=== PATIENT | female | born 1960 | race Caucasian/White ===

== ENCOUNTER 2021-06-02 15:18 | Inpatient (IN) | payer OTHER ==
--- OUTSIDE RECORDS SUMMARY | 2021-06-02 15:20 | XMS REPORT | Continuity of Care Document ---
:1960 Author Organization [facility] t Address [address] [place] [address] Dr. Rasheed [address] [place] [id number] Care Team Providers Name Role Phone Unavailable Unavailable Unavailable Problems This patient has no known problems. Allergies, Adverse Reactions, Alerts This patient has no known allergies or adverse reactions. Medications This patient has no known medications. Procedures This patient has no known procedures. Results This patient has no known results.
[2021-06-02] MEDS ORDERED: ACETAMINOPHEN 500 MG TAB ONE (16:28)
--- NOTE | 2021-06-02 20:57 | RAD REPORT ---
EXAM DESCRIPTION: RAD - Chest Single View - 06/02/2021 8:14 pm CLINICAL HISTORY: CONGESTION COMPARISON: No comparisons FINDINGS: Increased prominence of the pulmonary interstitium. There are some ill-defined airspace op acities in lung bases. The heart size is within normal limits.No acute osseous abnormality. No signif icant pleural effusions or pneumothorax. IMPRESSION: Poorly defined airspace disease in the mid lungs and lung bases concerning for multifoca l pneumonia, including Covid-19.
[2021-06-02 21:12] LABS: Absolute Lymphocytes (CBC) 2.4 K/uL (0.7-4.9); Basophils % 0.2 % (0-1.3); Hematocrit 41.3 % (36.0-45.0); Lymphocytes % 25.3 % (15.3-44.8); MPV 9.9 fL (7.6-11.3); RBC Red Blood Cell Count 4.41 M/uL (3.86-4.86)
[2021-06-02] MEDS ORDERED: NA CHLORIDE 0.9% 1,000 ML ONE (21:16)
[2021-06-02 21:19] LABS: Protime INR 1.17
[2021-06-02 21:36] LABS: ALT/SGPT 93 U/L (12-78); AST/SGOT 62 U/L (15-37); Albumin 3.2 g/dL (3.4-5.0); Alkaline Phosphatase 91 U/L (45-117); BUN Blood Urea Nitrogen 16 mg/dL (7-18); Bicarbonate 25 mmol/L (21-32); Bilirubin Direct 0.2 mg/dL (0-0.2); Bilirubin Total 0.5 mg/dL (0.2-1.0); Ferritin 862.1 ng/mL (8-388); Glucose Level 113 mg/dL (74-106); Lipase 204 U/L (73-393); Potassium 3.4 mmol/L (3.5-5.1); Protein, Total 7.6 g/dL (6.4-8.2); Sodium Level 136 mmol/L (136-145); Troponin (Emerg Dept Use Only) < 0.02 ng/mL (0.0-0.045)
[2021-06-02] MEDS ORDERED: CEFTRIAXONE 1000 MG/VIAL ONE (21:43)
[2021-06-02] MEDS ORDERED: METHYLPREDNISOLONE 125 MG INJ ONE (21:43)
[2021-06-02] MEDS ORDERED: ENOXAPARIN 80 MG/0.8 ML SQ ONE (21:44)
--- NOTE | 2021-06-02 22:24 | ER ---
Nurse's Notes [facility] Name: Cyn Pruett Age: 60 yrs Sex: Female : 1960 Arrival Date: 06/02/2021 Time: 15:23 Bed 17 Private MD: Diagnosis: Hypoxemia;Other viral pneumonia-covid - 19;Tachycardia, unspecified Presentation: 06/02 15:48 Chief complaint: Patient states: COVID + on 05/24/21 at [place], was going to get the jl7 Regeneron but Dr. Phillip said no because our oxygen was too low at 89% and he said to come to the ER to get admitted. Radha the nurse at [facility] spoke with Dr. Guzman and he wanted to send us home but they sent us here because we're dehydrated and our sats were low. Coronavirus screen: Vaccine status: Patient reports being unvaccinated. shortness of breath, Client reports previous positive COVID test result. Date of collection: May 24, 2021. Ebola Screen: No symptoms or risks identified at this time. Initial Sepsis Screen: Does the patient meet any 2 criteria? No. Patient's initial sepsis screen is negative. Does the patient have a suspected source of infection? No. Patient's initial sepsis screen is negative. Risk Assessment: Do you want to hurt yourself or someone else? Patient reports no desire to harm self or others. Onset of symptoms was May 24, 2021. 15:48 Method Of Arrival: Wheelchair jl7 15:48 Acuity: BONY 3 jl7 Triage Assessment: 15:50 General: Appears in no apparent distress. uncomfortable, Behavior is calm, cooperative, jl7 appropriate for age. Pain: Complains of pain in low back area Pain currently is 3 out of 10 on a pain scale. Pain began years ago. Neuro: Level of Consciousness is awake, alert, obeys commands, Oriented to person, place, time, situation. Respiratory: Airway is patent Respiratory effort is even, unlabored, Respiratory pattern is symmetrical, tachypnea. Derm: Skin is pink, warm \T\ dry. Historical: - Allergies: 15:50 No Known Allergies; jl7 - PMHx: 15:50 Hypertensive disorder; SVT; jl7 - PSHx: 15:50 Ablation; section; Cholecystectomy; jl7 - Immunization history:: Adult Immunizations unknown, Client reports having NOT received the Covid vaccine. - Social history:: Smoking status: Patient denies any tobacco usage or history of. - Family history:: not pertinent. Screenin/01 01:52 Abuse screen: Denies threats or abuse. Nutritional screening: No deficits noted. lh3 Tuberculosis screening: No symptoms or risk factors identified. Fall Risk IV access (20 points). Vital Signs: 06/02 15:48 BP 140 / 82; Pulse 120; Resp 23; Temp 101.2(O); Pulse Ox 90% on R/A; Weight 104.33 kg; jl7 Height 5 ft. 6 in. (167.64 cm); Pain 3/10; 15:48 Body Mass Index 37.12 (104.33 kg, 167.64 cm) jl7 ED Course: 15:23 Patient arrived in ED. ds1 15:50 Triage completed. jl7 15:50 Arm band placed on right wrist. Patient placed in waiting room, Patient notified of 7 wait time. 19:48 Chapincito Nolan MD is Attending Physician. ma2 19:51 Winnie Warren, FENG is Primary Nurse. lh3 20:14 CXR XRAY In Process Unspecified. EDMS 21:13 Basic Metabolic Panel Sent. lh3 21:13 Blood Culture Sent. lh3 21:13 C-Reactive Protein Sent. lh3 21:13 BMP Sent. lh3 21:13 Blood Culture Adult (2) Sent. lh3 21:13 C-Reactive Protein Sent. lh3 22:23 Jeferson Palomo MD is Hospitalizing Provider. ma2 06/03 01:52 Patient has correct armband on for positive identification. Call light in reach. Side lh3 rails up X 1. Side rails up X2. 01:52 No provider procedures requiring assistance completed. Inserted saline lock: 22 gauge lh3 in right hand, using aseptic technique. 01:55 Patient admitted, IV remains in place. 3 08:05 Primary Nurse role handed off by Winnie Warren, FENG 19:31 Mini Burton is Primary Nurse. kc4 19:33 Throat Culture Sent. kc4 Administered Medications: 06/02 21:13 Drug: NS 0.9% 1000 ml Route: IV; Rate: 1 bolus; Site: right hand; lh3 06/03 19:35 Follow up: Response: No adverse reaction; IV Status: Completed infusion [facility] 06/02 22:21 Drug: SOLU-Medrol (methylPrednisoLONE) 125 mg Route: IVP; Site: right hand; [facility] 22:21 Drug: Rocephin (cefTRIAXone) 1 grams Route: IV; Rate: calculated rate; Site: right hand;[facility] 06/03 19:33 Follow up: Response: No adverse reaction 4 19:34 Follow up: IV Status: Completed infusion [facility] 06/02 22:21 Drug: Lovenox (enoxaparin) 80 mg Route: Sub-Q; Site: left lower abdomen; [facility] 06/03 19:34 Follow up: Response: No adverse reaction [facility] Outcome: 06/02 22:24 Decision to Hospitalize by Provider. in2 06/03 01:52 Admitted to ER Hold. [facility]. 3 Condition: stable Discharge instructions given to Instructed on the need for admit, Demonstrated understanding of instructions. 06/04 15:02 Patient left the ED. ch5 Signatures: Dispatcher [employer] EDMS Billie Montague Demi ds1 Isra Hall RN RN jl7 Chapincito Nolan MD MD in2 Winnie Warren RN RN 3 Josh Garcia, FENG RN ch5 Mini Burton kc4 Corrections: (The following items were deleted from the chart) 06/02 15:52 15:48 BP 140 / 82; Pulse 120bpm; Resp 19bpm; Pulse Ox 90% RA; Temp 101.2F Oral; 104.33 jl7 kg; Height 5 ft. 6 in.; BMI: 37.1; Pain 3/10; jl7
--- NOTE | 2021-06-02 22:24 | EDPHYS ---
Physician Documentation [facility] Name: Cyn Pruett Age: 60 yrs Sex: Female : 1960 Arrival Date: 06/02/2021 Time: 15:23 Bed 17 Private MD: ED Physician Chapincito Nolan HPI: 06/02 20:30 This 60 yrs old Female presents to ER via Wheelchair with complaints of ma2 COVID+ Low O2. 20:30 The patient has shortness of breath with light activity. Onset: The symptoms/episode ma2 began/occurred gradually, 10 day(s) ago. Associated signs and symptoms: Pertinent positives: non-productive cough, Pertinent negatives: productive cough, dizziness, hemoptysis, loss of consciousness, nausea, visual changes. Severity of symptoms: At their worst the symptoms were mild in the emergency department the symptoms are unchanged. The patient has not experienced similar symptoms in the past. Historical: - Allergies: 15:50 No Known Allergies; jl7 - PMHx: 15:50 Hypertensive disorder; SVT; jl7 - PSHx: 15:50 Ablation; section; Cholecystectomy; jl7 - Immunization history:: Adult Immunizations unknown, Client reports having NOT received the Covid vaccine. - Social history:: Smoking status: Patient denies any tobacco usage or history of. - Family history:: not pertinent. ROS: 20:30 Constitutional: Negative for fever, chills, and weight loss. ma2 20:30 All other systems are negative. Exam: 20:30 Constitutional: This is a well developed, well nourished patient who is awake, alert, ma2 and in no acute distress. Head/Face: Normocephalic, atraumatic. Eyes: Pupils equal round and reactive to light, extra-ocular motions intact. Lids and lashes normal. Conjunctiva and sclera are non-icteric and not injected. Cornea within normal limits. Periorbital areas with no swelling, redness, or edema. ENT: Nares patent. No nasal discharge, no septal abnormalities noted. Tympanic membranes are normal and external auditory canals are clear. Oropharynx with no redness, swelling, or masses, exudates, or evidence of obstruction, uvula midline. Mucous membranes moist. Neck: Trachea midline, no thyromegaly or masses palpated, and no cervical lymphadenopathy. Supple, full range of motion without nuchal rigidity, or vertebral point tenderness. No Meningismus. Chest/axilla: Normal chest wall appearance and motion. Nontender with no deformity. No lesions are appreciated. Cardiovascular: Regular rate and rhythm with a normal S1 and S2. No gallops, murmurs, or rubs. Normal PMI, no JVD. No pulse deficits. Abdomen/GI: Soft, non-tender, with normal bowel sounds. No distension or tympany. No guarding or rebound. No evidence of tenderness throughout. Back: No spinal tenderness. No costovertebral tenderness. Full range of motion. MS/ Extremity: Pulses equal, no cyanosis. Neurovascular intact. Full, normal range of motion. Neuro: Awake and alert, GCS 15, oriented to person, place, time, and situation. Cranial nerves II-XII grossly intact. Motor strength 5/5 in all extremities. Sensory grossly intact. Cerebellar exam normal. Normal gait. 20:30 Respiratory: mild respiratory distress is noted, Respirations: labored breathing, Breath sounds: rales, bronchial sounds, that are moderate, are scattered, Respiratory rate: 32 spo 2 is 88 on RA and 92 on 3L O2. Vital Signs: 15:48 BP 140 / 82; Pulse 120; Resp 23; Temp 101.2(O); Pulse Ox 90% on R/A; Weight 104.33 kg; jl7 Height 5 ft. 6 in. (167.64 cm); Pain 3/10; 15:48 Body Mass Index 37.12 (104.33 kg, 167.64 cm) jl7 MDM: 19:48 Patient medically screened. ma2 22:22 Differential diagnosis: Bronchitis CHF exacerbation, pneumonia, reactive airway ma2 disease. Data reviewed: vital signs, nurses notes, EMS record. Counseling: I had a detailed discussion with the patient and/or guardian regarding: the historical points, exam findings, and any diagnostic results supporting the discharge/admit diagnosis, the presence of at least one elevated blood pressure reading (>120/80) during this emergency department visit, the need for outpatient follow up. Response to treatment: the patient's symptoms have markedly improved after treatment. 22:24 ED course: patient need to be admitted for covid 19, has hypoxemia and spo2 was 88 on ma2 RA. now spo2 is 93 on O2 3l via NC. 06/02 19:17 Order name: BMP [facility] 06/02 19:17 Order name: Blood Culture Adult (2) [facility] 06/02 19:17 Order name: C-Reactive Protein [facility] 06/02 19:17 Order name: CBC with Diff; Complete Time: 22:21 [facility] 06/02 19:17 Order name: Ferritin; Complete Time: 22:21 [facility] 06/02 19:17 Order name: Flu; Complete Time: 22:21 [facility] 06/02 19:17 Order name: LFT's; Complete Time: 22:21 [facility] 06/02 19:17 Order name: Lactate; Complete Time: 22:21 [facility] 06/02 19:17 Order name: Lipase; Complete Time: 22:21 [facility] 06/02 19:17 Order name: PT-INR; Complete Time: 22:21 [facility] 06/02 19:17 Order name: Procalcitonin; Complete Time: 22:21 [facility] 06/02 19:17 Order name: Ptt, Activated; Complete Time: 22:21 [facility] 06/02 19:17 Order name: Strep; Complete Time: 22:21 [facility] 06/02 19:17 Order name: Troponin (emerg Dept Use Only); Complete Time: 22:21 [facility] 06/02 19:17 Order name: Urine Microscopic Only; Complete Time: 12:44 [facility] 06/02 19:18 Order name: Basic Metabolic Panel; Complete Time: 22:21 [facility] 06/02 19:18 Order name: Blood Culture [facility] 06/02 19:18 Order name: C-Reactive Protein; Complete Time: 22:21 [facility] 06/02 21:42 Order name: Throat Culture [facility] 06/02 23:08 Order name: Urine Dipstick-Ancillary; Complete Time: 12:44 [facility] 06/03 05:47 Order name: D-Dimer; Complete Time: 12:44 [facility] 06/03 05:49 Order name: CBC with Automated Diff; Complete Time: 12:44 [facility] 06/03 06:29 Order name: Comprehensive Metabolic Panel; Complete Time: 12:44 [facility] 06/03 06:29 Order name: Lipid Profile; Complete Time: 12:44 [facility] 06/03 06:29 Order name: C-Reactive Protein; Complete Time: 12:44 [facility] 06/03 06:29 Order name: T4 Free; Complete Time: 12:44 [facility] 06/03 06:29 Order name: Thyroid Stimulating Hormone; Complete Time: 12:44 [facility] 06/03 06:29 Order name: Ferritin; Complete Time: 12:44 [facility] 06/04 03:13 Order name: CBC with Automated Diff [facility] 06/04 03:15 Order name: D-Dimer [facility] 06/02 19:17 Order name: CXR XRAY; Complete Time: 22:21 [facility] 06/02 19:17 Order name: EKG; Complete Time: 19:18 dc2 06/02 19:17 Order name: Cardiac monitoring; Complete Time: 21:13 [facility] 06/02 19:17 Order name: Droplet/Contact Precautions; Complete Time: 21:13 [facility] 06/02 19:17 Order name: EKG - Nurse/Tech; Complete Time: 21:13 [facility] 06/02 19:17 Order name: Ag; Complete Time: 19:32 [facility] 06/02 19:17 Order name: IV Start; Complete Time: 21:14 [facility] 06/02 19:17 Order name: Labs collected and sent; Complete Time: 21:14 [facility] 06/02 19:17 Order name: O2 Per Protocol; Complete Time: 21:14 [facility] 06/02 19:17 Order name: O2 Sat Monitoring; Complete Time: 21:14 [facility] 06/02 19:17 Order name: Urine Dipstick-Ancillary (obtain specimen); Complete Time: 19:32 [facility] 06/04 03:29 Order name: Comprehensive Metabolic Panel [facility] 06/04 03:29 Order name: C-Reactive Protein [facility] 06/04 03:29 Order name: Ferritin [facility] Administered Medications: 21:13 Drug: NS 0.9% 1000 ml Route: IV; Rate: 1 bolus; Site: right hand; 3 06/03 19:35 Follow up: Response: No adverse reaction; IV Status: Completed infusion [facility] 06/02 22:21 Drug: SOLU-Medrol (methylPrednisoLONE) 125 mg Route: IVP; Site: right hand; 3 22:21 Drug: Rocephin (cefTRIAXone) 1 grams Route: IV; Rate: calculated rate; Site: right hand;3 06/03 19:33 Follow up: Response: No adverse reaction 4 19:34 Follow up: IV Status: Completed infusion [facility] 06/02 22:21 Drug: Lovenox (enoxaparin) 80 mg Route: Sub-Q; Site: left lower abdomen; 3 06/03 19:34 Follow up: Response: No adverse reaction kc4 Disposition Summary: 06/02/21 22:24 Hospitalization Ordered Hospitalization Status: Inpatient Admission ma2 Provider: Jeferson Palomo Condition: Stable ma2 Problem: new ma2 Symptoms: are unchanged dc2 Bed/Room Type: Standard [facility] Location: [facility] ER HOLD(06/02/21 22:51) em Room Assignment: ERHOLD-(06/02/21 22:51) em Diagnosis - Hypoxemia ma2 - Other viral pneumonia - covid - 19 ma2 - Tachycardia, unspecified ma2 Forms: - Medication Reconciliation Form ma2 - SBAR form ma2 Signatures: Dispatcher [employer] EDTesfaye Ceron RN RN Dane Palomo MD MD rn Leal, Jahala, RN RN jl7 Chapincito Nolan MD MD [facility] Winnie Warren RN RN 3 Mini Burton kc4 Corrections: (The following items were deleted from the chart) 06/02 22:51 22:24 Telemetry/MedSurg (Inpatient) dc2 em 22:51 22:24 ma2 em
[2021-06-02 23:08] LABS: Urine Blood Negative (Negative); Urine Glucose Negative (Negative); Urine Protein 1+ (Negative)
--- NOTE | 2021-06-03 00:13 | P.HP ---
Certification for Inpatient Patient admitted to: Inpatient With expected LOS: >2 Midnights Patient will require the following post-hospital care: None Practitioner: I am a practitioner with admitting privileges, knowledge of patient current condition, hospital course, and medical plan of care. Services: Services provided to patient in accordance with Admission requirements found in Title 42 Section 412.3 of the Code of Federal Regulations <Nomi Miller - Last Filed: 06/03/21 00:10> Patient History Date of Service: 06/03/21 Reason for admission: COVID-19 pneumonia History of Present Illness: 60-year-old female with history of hypertension, SVT status post ablation presents emerge department for shortness of breath. Patient reports that she tested positive for Covid on 05/24/2021 with progressive shortness of breath since then especially worse over the course of last few days. Patient was evaluated emergency department found to be hypoxic with saturations in the high 80s on room air labs are significant for ferritin 862 C-reactive protein 80.8. Patient currently on nasal cannula at 3 L saturating in the low 90s. ED provider wishes to admit for further evaluation and management. 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 - Family History Family History: Reviewed- Non-Contributory - Social History Smoking Status: Never smoker Alcohol use: No CD- Drugs: No Caffeine use: Yes Place of Residence: Home <Nomi Miller - Last Filed: 06/03/21 00:10> Date of Service: 06/03/21 <Jeferson Palomo - Last Filed: 06/03/21 17:59> Review of Systems 10-point ROS is otherwise unremarkable General: Fever, Chills, Weakness, Malaise Respiratory: Cough, Shortness of Breath, SOB with Excertion <Nomi Miller - Last Filed: 06/03/21 00:10> Physical Examination - Physical Exam General: Alert, In no apparent distress, Oriented x3 HEENT: Atraumatic, PERRLA, Other (Mucous membranes dry) Neck: Supple, 2+ carotid pulse no bruit, No LAD Respiratory: Diminished Cardiovascular: Regular rate/rhythm, Normal S1 S2 Gastrointestinal: Normal bowel sounds, No tenderness Musculoskeletal: No tenderness Integumentary: No rashes Neurological: Normal speech, Normal strength at 5/5 x4 extr, Normal tone, Normal affect - Studies Laboratory Data (last 24 hrs) 06/02/21 20:33: PT 13.5 H, INR 1.17, APTT 27.0 06/02/21 20:33: WBC 9.60, Hgb 13.9, Hct 41.3, Plt Count 206 06/02/21 20:33: Sodium 136, Potassium 3.4 L, BUN 16, Creatinine 0.92, Glucose 113 H, Total Bilirubin 0.5, AST 62 H, ALT 93 H, Alkaline Phosphatase 91, Lipase 204 Microbiology Data (last 24 hrs): 06/02/21 20:45 Throat Group A Streptococcus Rapid Screen - Final 06/02/21 20:45 Nasopharnyx Influenza Type A Antigen Screen - Final 06/02/21 20:45 Nasopharnyx Influenza Type B Antigen Screen - Final <Nomi Miller - Last Filed: 06/03/21 00:10> - Studies Laboratory Data (last 24 hrs) 06/02/21 20:33: PT 13.5 H, INR 1.17, APTT 27.0 06/02/21 20:33: WBC 9.60, Hgb 13.9, Hct 41.3, Plt Count 206 06/02/21 20:33: Sodium 136, Potassium 3.4 L, BUN 16, Creatinine 0.92, Glucose 113 H, Total Bilirubin 0.5, AST 62 H, ALT 93 H, Alkaline Phosphatase 91, Lipase 204 Microbiology Data (last 24 hrs): 06/02/21 20:45 Throat Group A Streptococcus Rapid Screen - Final 06/02/21 20:45 Nasopharnyx Influenza Type A Antigen Screen - Final 06/02/21 20:45 Nasopharnyx Influenza Type B Antigen Screen - Final <Jeferson Palomo - Last Filed: 06/03/21 17:59> Assessment and Plan - Plan Assessment: Acute hypoxic respiratory failure secondary to COVID-19 pneumonia Hypertension Plan: Acute hypoxic respiratory failure secondary to COVID-19 pneumonia: Continue IV steroids, oral supplements. Patient has previously taken ivermectin. Supplemental oxygen as needed, daily right saturations, room air saturations for home O2, social insurance adviser consult in place for home oxygen arrangement. If patient continues to well over the course the next 24 to 48 hours she may be discharged on home oxygen. With worsening patient will likely be here for a prolonged period of time. Pulmonology consulted. Hypertension: Obtain and continue home medications. DVT PPX: Lovenox Code status: Full Discharge Plan: Home Plan to discharge in: 48 Hours - Advance Directives Does patient have a Living Will: No Does patient have a Durable POA for Healthcare: No - Code Status/Comfort Care Code Status Assessed: Yes (Full code) Critical Care: No Time Spent Managing Pts Care (In Minutes): 55 <Nomi Miller - Last Filed: 06/03/21 00:10> - Plan Patient seen and examined on rounds this morning Patient still dyspneic, but tolerating 2 L nasal cannula Generalized weakness, desaturates with movement Anticipate discharge home tomorrow with home O2. <Jeferson Palomo - Last Filed: 06/03/21 17:59>
[2021-06-03 00:25] LABS: Urine Bacteria <20 /HPF (<20)
[2021-06-03 01:41] VITALS: BMI 37.1
[2021-06-03] MEDS ORDERED: BENZONATATE 100 MG CAP PO PRN (01:42)
[2021-06-03] MEDS ORDERED: ONDANSETRON 4 MG/2 ML VIAL IV PRN (01:42)
[2021-06-03] MEDS ORDERED: MELATONIN 5 MG TABLET PO PRN (01:42)
[2021-06-03] MEDS ORDERED: ACETAMINOPHEN 500 MG TAB PO PRN (01:42)
[2021-06-03 05:45] LABS: Basophils % 0.3 % (0-1.3); Lymphocytes % 19.5 % (15.3-44.8); RBC Red Blood Cell Count 4.14 M/uL (3.86-4.86)
[2021-06-03 06:28] LABS: ALT/SGPT 88 U/L (12-78); AST/SGOT 60 U/L (15-37); Albumin 2.9 g/dL (3.4-5.0); Alkaline Phosphatase 84 U/L (45-117); BUN Blood Urea Nitrogen 13 mg/dL (7-18); Bicarbonate 24 mmol/L (21-32); Bilirubin Total 0.3 mg/dL (0.2-1.0); Ferritin 759.5 ng/mL (8-388); Glucose Level 181 mg/dL (74-106); HDL Cholesterol 57 mg/dL (40-60); LDL Cholesterol, Calculated 55 (<130); Potassium 4.1 mmol/L (3.5-5.1); Protein, Total 6.8 g/dL (6.4-8.2); Sodium Level 139 mmol/L (136-145); Thyroid Stimulating Hormone 0.327 uIU/mL (0.360-3.740)
[2021-06-03] MEDS ORDERED: ASCORBIC ACID 500 MG TABLET ONE ×4 (07:49→21:17)
[2021-06-03] MEDS ORDERED: VITAMIN D 1000 UNIT TAB ONE ×2 (07:50→09:37)
[2021-06-03] MEDS ORDERED: ZINC SULFATE 220 MG CAP ONE (07:50)
[2021-06-03] MEDS ORDERED: THIAMINE HCL 100 MG TABLET ONE (07:50)
[2021-06-03] MEDS ORDERED: ASPIRIN EC 81 MG TAB PO ONE (07:50)
[2021-06-03] MEDS ORDERED: METHYLPREDNISOLONE 40 MG INJ ONE (07:51)
[2021-06-03] MEDS ORDERED: ENOXAPARIN 40 MG/0.4 ML SQ ONE (07:51)
[2021-06-03] MEDS: ASCORBIC ACID 500 MG TABLET PO SCH ×4 (09:00→21:00)
[2021-06-03] MEDS: VITAMIN D 1000 UNIT TAB PO SCH (09:00)
[2021-06-03] MEDS: ZINC SULFATE 220 MG CAP PO SCH (09:00)
[2021-06-03] MEDS: ASPIRIN EC 81 MG TAB PO SCH (09:00)
[2021-06-03] MEDS ORDERED: METHYLPREDNISOLONE 40 MG INJ IV SCH (09:00)
[2021-06-03] MEDS: ENOXAPARIN 40 MG/0.4 ML SQ SCH (09:00)
[2021-06-03] MEDS: THIAMINE HCL 100 MG TABLET PO SCH (09:00)
--- NOTE | 2021-06-03 13:26 | P.PN ---
Subjective Date of Service: 06/03/21 Chief Complaint: COVID-19 pneumonia Subjective: Improving (Doing well no complaints) Review of Systems General: Weakness Respiratory: Shortness of Breath Physical Examination - Vital Signs Temperature: 98.6 F Blood Pressure: 127/69 Pulse: 70 Respirations: 16 Pulse Ox (%): 100 - Physical Exam General: Alert, Oriented x3, Cooperative - Studies Laboratory Data (last 24 hrs) 06/02/21 20:33: PT 13.5 H, INR 1.17, APTT 27.0 06/02/21 20:33: WBC 9.60, Hgb 13.9, Hct 41.3, Plt Count 206 06/02/21 20:33: Sodium 136, Potassium 3.4 L, BUN 16, Creatinine 0.92, Glucose 113 H, Total Bilirubin 0.5, AST 62 H, ALT 93 H, Alkaline Phosphatase 91, Lipase 204 Microbiology Data (last 24 hrs): 06/02/21 20:45 Throat Group A Streptococcus Rapid Screen - Final 06/02/21 20:45 Nasopharnyx Influenza Type A Antigen Screen - Final 06/02/21 20:45 Nasopharnyx Influenza Type B Antigen Screen - Final Assessment & Plan - Problems (Diagnosis) (1) COVID-19 Current Visit: Yes Status: Acute Plan: Age 60 AW COVI penumonia/doign well/ on NCO2 Plan to Dc home/ labs and CXRY reviewed/ pt ws prescribed steroids and ivermectin at home
[2021-06-03] MEDS: METHYLPREDNISOLONE 125 MG INJ IV SCH (21:00)
[2021-06-03] MEDS ORDERED: MELATONIN 5 MG TABLET PO ONE (21:17)
[2021-06-03] MEDS ORDERED: METHYLPREDNISOLONE 125 MG INJ ONE (21:17)
[2021-06-04 03:10] LABS: Absolute Lymphocytes (CBC) 1.3 K/uL (0.7-4.9); Basophils % 0.1 % (0-1.3); Hematocrit 37.6 % (36.0-45.0); Lymphocytes % 16.3 % (15.3-44.8); MPV 9.1 fL (7.6-11.3); RBC Red Blood Cell Count 4.01 M/uL (3.86-4.86)
[2021-06-04 03:28] LABS: ALT/SGPT 78 U/L (12-78); AST/SGOT 35 U/L (15-37); Albumin 2.9 g/dL (3.4-5.0); Alkaline Phosphatase 75 U/L (45-117); BUN Blood Urea Nitrogen 12 mg/dL (7-18); Bicarbonate 25 mmol/L (21-32); Bilirubin Total 0.3 mg/dL (0.2-1.0); Ferritin 612.4 ng/mL (8-388); Glucose Level 185 mg/dL (74-106); Protein, Total 6.6 g/dL (6.4-8.2); Sodium Level 140 mmol/L (136-145)
[2021-06-04] MEDS ORDERED: METHYLPREDNISOLONE 125 MG INJ ONE (07:57)
[2021-06-04] MEDS ORDERED: ASPIRIN 81 MG CHEWABLE TABLET ONE (07:57)
[2021-06-04] MEDS ORDERED: ASCORBIC ACID 500 MG TABLET ONE ×2 (07:57→13:12)
[2021-06-04] MEDS ORDERED: THIAMINE HCL 100 MG TABLET ONE (07:57)
[2021-06-04] MEDS ORDERED: ZINC SULFATE 220 MG CAP ONE (07:57)
[2021-06-04] MEDS ORDERED: ENOXAPARIN 40 MG/0.4 ML SQ ONE (07:58)
[2021-06-04] MEDS ORDERED: VITAMIN D 1000 UNIT TAB ONE (07:58)
[2021-06-04] MEDS: VITAMIN D 1000 UNIT TAB PO SCH (08:40)
[2021-06-04] MEDS: ENOXAPARIN 40 MG/0.4 ML SQ SCH (08:40)
[2021-06-04] MEDS: THIAMINE HCL 100 MG TABLET PO SCH (08:40)
[2021-06-04] MEDS: ASCORBIC ACID 500 MG TABLET PO SCH ×2 (08:40→13:00)
[2021-06-04] MEDS: ASPIRIN EC 81 MG TAB PO SCH (08:40)
[2021-06-04] MEDS: ZINC SULFATE 220 MG CAP PO SCH (08:40)
[2021-06-04] MEDS: METHYLPREDNISOLONE 125 MG INJ IV SCH (08:40)
[2021-06-04] MEDS ORDERED: BENZONATATE 100 MG CAP PO ONE (09:43)
[2021-06-04] MEDS ORDERED: ONDANSETRON 4 MG/2 ML VIAL ONE (09:47)
[2021-06-04 11:55] VITALS: O2SAT 92
[2021-06-04 13:17] VITALS: TEMP 98.8
[2021-06-04 14:37] VITALS: BP 118/73
--- NOTE | 2021-06-04 16:05 | P.DS ---
Admission Date: 06/03/21 Discharge Date: 06/04/21 Disposition: ROUTINE DISCHARGE Discharge Condition: GOOD Reason for Admission: COVID-19 pneumonia Consultations: PulmonologyDr. Guzman Procedures: CXR (06/02): FINDINGS: Increased prominence of the pulmonary interstitium. There are some ill-defined airspace opacities in lung bases. The heart size is within normal limits.No acute osseous abnormality. No significant pleural effusions or pneumothorax. IMPRESSION: Poorly defined airspace disease in the mid lungs and lung bases concerning for multifocal pneumonia, including Covid-19. Problem list Acute hypoxic respiratory failure secondary to COVID-19 pneumonia Hypertension Generalized anxiety Brief History of Present Illness: 60-year-old female with history of hypertension, SVT status post ablation presents emerge department for shortness of breath. Patient reports that she tested positive for Covid on 05/24/2021 with progressive shortness of breath since then especially worse over the course of last few days. Patient was evaluated emergency department found to be hypoxic with saturations in the high 80s on room air labs are significant for ferritin 862 C-reactive protein 80.8. Patient currently on nasal cannula at 3 L saturating in the low 90s. ED provider wishes to admit for further evaluation and management. Hospital Course: Patient was treated with steroids, vitamin supplementation, oxygen supplementation. She was breathing much more comfortably with oxygen supplementation, requiring 2-3 L nasal cannula to maintain SPO2 greater than 92%. She had improvement of her symptoms, improvement of her inflammatory markers, was subsequently discharged home with home oxygen. She had just received full prescriptions for vitamin D steroids the day prior to admission. She was instructed to continue those prescriptions. She will follow-up with pulmonology, Dr. Guzman in 1 week. Vital Signs/Physical Exam: Physical exam GEN: Alert, oriented, NAD HEENT: Normal conjunctiva, sclera anicteric CV: Regular rate and rhythm, no edema Pulm: Nonlabored respiration on 3L NC ABD: Soft, nontender, nondistended Integumentary: No rashes Neuro: Normal speech, anxious appearing Temp Pulse Resp BP Pulse Ox 98.8 F 86 20 118/73 94 06/04/21 12:00 06/04/21 14:36 06/04/21 14:36 06/04/21 14:36 06/04/21 14:36 Laboratory Data at Discharge: WBC 8.00 K/uL (4.3-10.9) D 06/04/21 02:10 Hgb 12.7 g/dL (12.0-15.0) 06/04/21 02:10 Hct 37.6 % (36.0-45.0) 06/04/21 02:10 Plt Count 256 K/uL (152-406) D 06/04/21 02:10 PT 13.5 SECONDS (9.5-12.5) H 06/02/21 20:33 INR 1.17 06/02/21 20:33 APTT 27.0 SECONDS (24.3-36.9) 06/02/21 20:33 Sodium 140 mmol/L (136-145) 06/04/21 02:10 Potassium 4.0 mmol/L (3.5-5.1) 06/04/21 02:10 BUN 12 mg/dL (7-18) 06/04/21 02:10 Creatinine 0.57 mg/dL (0.55-1.3) 06/04/21 02:10 Glucose 185 mg/dL (74-106) H 06/04/21 02:10 Total Bilirubin 0.3 mg/dL (0.2-1.0) 06/04/21 02:10 AST 35 U/L (15-37) 06/04/21 02:10 ALT 78 U/L (12-78) 06/04/21 02:10 Alkaline Phosphatase 75 U/L (45-117) 06/04/21 02:10 Triglycerides 124 mg/dL (<150) 06/03/21 05:13 Cholesterol 137 mg/dL (<200) 06/03/21 05:13 HDL Cholesterol 57 mg/dL (40-60) 06/03/21 05:13 Cholesterol/HDL Ratio 2.40 06/03/21 05:13 Lipase 204 U/L (73-393) 06/02/21 20:33 Physician Discharge Instructions: You were found to have COVID-19 pneumonia. You had improvement with steroids, vitamin supplementation, and oxygen supplementation. You are discharged home to continue with this treatment. You just received all your prescriptions from Dr. Guzman the day prior to admission. Continue as prescribed - aspirin, decadron, vitamins. Follow up with Dr. Guzman ([employer]) in ~1 week. Call his office to schedule the appointment. You are discharged home with oxygen Diet: Regular Activity: Ad malachi Followup: Ricardo Milligan MD [Primary Care Provider] - Time spent managing pt's care (in minutes): 40
== END 2021-06-04 15:15 | disposition home or self-care (01) | DRG 177 ==
LOC: ER 15:18 → ERHOLD 06-03 00:03
PROVIDERS: ADMIT Hospitalist; ATTEND Hospitalist
DX: U07.1 COVID-19 (principal); J12.82 Pneumonia due to coronavirus disease 2019; J96.01 Acute respiratory failure with hypoxia; I10 Essential (primary) hypertension; F41.9 Anxiety disorder, unspecified
CPT/HCPCS: 36415; 71045; 80048; 80053; 80061; 80076; 81003; 81015; 82728; 83605; 83690; 84145; 84439; 84443; 84484; 85025; 85379; 85610; 85730; 86140; 87040; 87070; 87081; 87804; 94760; 96361; 96365; 96366; 96372; 96375; 99285; J1650; J2405; J2920; J2930; J7030